=== PATIENT | female | born 1970 | race African-American/Black ===

== ENCOUNTER → 2016-07-14 | Outpatient (CLI) | payer MEDICAID ==
[~2016-07-14] MED LIST: CHANTIX 1MG1 MG PO; DESYREL 50MG50 MG PO; EFFEXOR XR37.5 MG/CA PO; FLEXERIL 1010 MG/TAB PO; LEVAQUIN 750MG750 M1 PO; LIORESAL 1010 MG/TAB; NAPROSYN 2250 MG/TAB PO; NATURE'S BLEND100 M2 PO; NICOTINE TD; NORCO 325 MG-51 TAB PO; NORVASC 10MG10 MG PO; PRAVACHOL 20MG20 MG PO; PRILOSEC 20MG20 MG PO; PROAIR HFA0.09 MG/AC IH; TENORMIN 2525 MG/TAB PO; TOPAMAX 25MG25 M1 PO; TOPAMAX25 M1 PO; VITAMIN D32000 I1 PO; ZANTAC 150MG T150 MG PO
== END ==
LOC: COL.RAD 07-07 11:00
DX: K21.0 Gastro-esophageal reflux disease with esophagitis (principal); K44.9 Diaphragmatic hernia without obstruction or gangrene; K22.4 Dyskinesia of esophagus

== ENCOUNTER 2016-10-31 12:46 | Emergency (ER) | payer MEDICAID ==
[~2016-10-31] VITALS: Ht 162.6 cm; Wt 94.1 kg
[~2016-10-31 12:46] MED LIST changes: -EFFEXOR XR37.5 MG/CA PO; -FLEXERIL 1010 MG/TAB PO; -LIORESAL 1010 MG/TAB; -NICOTINE TD; -PRAVACHOL 20MG20 MG PO
[2016-10-31] MEDS ORDERED: FLEXERIL 1010 MG/TAB PO (13:50)
[2016-10-31 14:14] VITALS: BP 140/69; PULSE 80; TEMP 98.9
== END 2016-10-31 14:16 | disposition home or self-care (01) ==
LOC: COL.ER 12:46
DX: M62.838 Other muscle spasm (principal); R49.0 Dysphonia; K21.9 Gastro-esophageal reflux disease without esophagitis; Z86.73 Personal history of transient ischemic attack (TIA), and cerebral infarction without residual deficits; F17.210 Nicotine dependence, cigarettes, uncomplicated

== ENCOUNTER 2016-12-13 11:39 | Day surgery (SDC) | payer MEDICAID ==
[~2016-12-13] VITALS: Ht 162.6 cm; Wt 95.4 kg
[2016-12-13] VITALS (8 sets, daily range): BP systolic 148–177; BP diastolic 77–96; PULSE 78–88; TEMP 98
[~2016-12-13 11:39] MED LIST changes: +FLEXERIL 1010 MG/TAB PO
[2016-12-13] MEDS ORDERED: PRAVACHOL 20MG20 MG PO (12:16)
[2016-12-13] MEDS ORDERED: EFFEXOR XR37.5 MG/CA PO (12:17)
[2016-12-13] MEDS ORDERED: LIORESAL 1010 MG/TAB (12:18)
[2016-12-13] MEDS ORDERED: NICOTINE TD (12:18)
[2016-12-14 02:00] VITALS: BP 190/92; PULSE 95; TEMP 99.7
[2016-12-14 05:33] VITALS: BP 156/84; PULSE 103
[2016-12-14 08:56] VITALS: BP 147/84; PULSE 94; TEMP 98.4
[2016-12-14 09:32] LABS: HEMATOCRIT 38.9 % (37.0-47.0); HEMOGLOBIN 12.2 g/dl (12.5-16.0)
[2016-12-14 09:36] VITALS: BP 150/80; PULSE 85; TEMP 98.8
[2016-12-14 09:51] LABS: CALCIUM 9.9 mg/dL (8.4-10.2); CREATININE, serum 0.63 mg/dL (0.52-1.25)
[2016-12-14 14:34] VITALS: BP 111/62; PULSE 70; TEMP 98.5
== END 2016-12-14 17:15 | disposition home or self-care (01) ==
LOC: SDCO 11:39 → SURG 18:21 → SDCO 12-14 17:15
PROVIDERS: Surgery
DX: K44.9 Diaphragmatic hernia without obstruction or gangrene (principal); K21.9 Gastro-esophageal reflux disease without esophagitis; F17.210 Nicotine dependence, cigarettes, uncomplicated; Z86.73 Personal history of transient ischemic attack (TIA), and cerebral infarction without residual deficits; Z82.49 Family history of ischemic heart disease and other diseases of the circulatory system; Z83.3 Family history of diabetes mellitus
CPT/HCPCS: OP; A9284; C1713; C1781; J0330; J0360; J0690; J1100; J1170; J1885; J2405; J2550; J2704; J2710; J3010; J7042; J7120

== ENCOUNTER → 2017-02-01 | Outpatient (CLI) | payer MEDICAID ==
[~2017-02-01] MED LIST changes: +EFFEXOR XR37.5 MG/CA PO; +LIORESAL 1010 MG/TAB; +NICOTINE TD; +PRAVACHOL 20MG20 MG PO
== END ==
LOC: COL.RAD 13:49
DX: M51.26 Other intervertebral disc displacement, lumbar region (principal); M89.38 Hypertrophy of bone, other site; M48.061 Spinal stenosis, lumbar region without neurogenic claudication; Q05.7 Lumbar spina bifida without hydrocephalus; G93.89 Other specified disorders of brain; R53.1 Weakness; R90.82 White matter disease, unspecified; Z86.73 Personal history of transient ischemic attack (TIA), and cerebral infarction without residual deficits

== ENCOUNTER 2017-04-01 19:36 | Emergency (ER) | payer MEDICAID ==
[2017-04-01 19:36] VITALS: TEMP 98.6
[2017-04-01] MEDS ORDERED: MEDROL 4MG DOSPA4 MG PO (19:56)
[2017-04-01] MEDS ORDERED: NORCO 325 MG-51 TAB PO (20:29)
[2017-04-01 20:39] VITALS: BP 131/76; PULSE 70
== END 2017-04-01 20:43 | disposition home or self-care (01) ==
LOC: COL.ER 19:36
DX: M54.16 Radiculopathy, lumbar region (principal); I10 Essential (primary) hypertension; F17.210 Nicotine dependence, cigarettes, uncomplicated; Z86.73 Personal history of transient ischemic attack (TIA), and cerebral infarction without residual deficits; Z87.39 Personal history of other diseases of the musculoskeletal system and connective tissue
CPT/HCPCS: J7512

== ENCOUNTER → 2017-06-26 | Outpatient (CLI) | payer MEDICAID ==
[~2017-06-26] MED LIST changes: +MEDROL 4MG DOSPA4 MG PO
== END ==
LOC: COL.VAS 09:58
DX: I70.203 Unspecified atherosclerosis of native arteries of extremities, bilateral legs (principal)

== ENCOUNTER → 2017-07-10 | Outpatient (CLI) | payer MEDICAID | LOC: COL.RAD 07:47 | DX: I70.213 Atherosclerosis of native arteries of extremities with intermittent claudication, bilateral legs (principal); I74.5 Embolism and thrombosis of iliac artery; I26.99 Other pulmonary embolism without acute cor pulmonale; I74.3 Embolism and thrombosis of arteries of the lower extremities; R91.8 Other nonspecific abnormal finding of lung field; Z86.73 Personal history of transient ischemic attack (TIA), and cerebral infarction without residual deficits | CPT/HCPCS: Q9967 ==

== ENCOUNTER 2017-07-26 08:56 | Day surgery (SDC) | payer MEDICAID ==
[~2017-07-26] VITALS: Ht 162.7 cm; Wt 96.0 kg
[2017-07-26] VITALS (10 sets, daily range): BP systolic 144–161; BP diastolic 66–93; PULSE 60–77; TEMP 98.4
[2017-07-26 09:45] LABS: HEMOGLOBIN 10.6 g/dl (12.5-16.0); MEAN CELL VOLUME 72 fl (80.0-100.0); MEAN CORPUSCULAR HEMOGLOBIN 23 pg (27.0-31.0); MEAN CORPUSCULAR HGB CONC 31 g/dl (33.0-37.0); PLATELET COUNT 221 K/mm3 (130-400); RED BLOOD COUNT 4.69 M/mm3 (4.10-5.30); REDCELL DISTRIBUTION WIDTH-CV 16.1 % (11.5-14.5)
[2017-07-26 09:48] LABS: HEMATOCRIT 33.8 % (37.0-47.0)
[2017-07-26 09:49] LABS: PROTHROMBIN TIME 11.2 SECONDS (9.7-12.8)
[2017-07-26 09:54] LABS: CREATININE, serum 0.79 mg/dL (0.52-1.25)
[2017-07-26] MEDS ORDERED: PLAVIX 75MG TAB75 MG PO (17:42)
[2017-07-26] MEDS ORDERED: ASPIRIN E.C. 8181 MG PO (17:42)
== END 2017-07-26 19:00 | disposition home or self-care (01) ==
LOC: COL.CAR 08:56
PROVIDERS: Radiology Diagnostic Radiology
DX: I70.212 Atherosclerosis of native arteries of extremities with intermittent claudication, left leg (principal); I10 Essential (primary) hypertension; F17.210 Nicotine dependence, cigarettes, uncomplicated; K21.9 Gastro-esophageal reflux disease without esophagitis; F32.9 Major depressive disorder, single episode, unspecified; F41.9 Anxiety disorder, unspecified; G89.29 Other chronic pain; M54.5 Low back pain; M41.9 Scoliosis, unspecified; Z88.6 Allergy status to analgesic agent; Z86.73 Personal history of transient ischemic attack (TIA), and cerebral infarction without residual deficits
CPT/HCPCS: C1725; C1753; C1760; C1769; C1887; C1894; J0360; J1644; J2250; J2704; J3010; J7030

== ENCOUNTER 2017-07-28 23:03 | Emergency (ER) | payer MEDICAID ==
[~2017-07-28] VITALS: Ht 165.1 cm; Wt 90.9 kg
[~2017-07-28 23:03] MED LIST changes: +ASPIRIN E.C. 8181 MG PO; +PLAVIX 75MG TAB75 MG PO
[2017-07-28 23:39] LABS: COLLECTION METHOD CLEAN CATCH
[2017-07-28 23:52] LABS: BASO % 0.5 % (0.0-2.0); EOS # 0.2 (0.0-0.7); GRAN # 5.9 (1.4-6.5); GRAN % 66.6 % (42.2-75.2); HEMOGLOBIN 10.6 g/dl (12.5-16.0); LYMPH % 22.6 % (20.0-51.0); MEAN CELL VOLUME 72 fl (80.0-100.0); MEAN CORPUSCULAR HEMOGLOBIN 23 pg (27.0-31.0); MEAN CORPUSCULAR HGB CONC 32 g/dl (33.0-37.0); MEAN PLATELET VOLUME 12.3 fl (7.4-10.4); MONO # 0.7 (0.1-0.6); MONO % 7.8 % (1.7-9.3); PLATELET COUNT 214 K/mm3 (130-400); RED BLOOD COUNT 4.64 M/mm3 (4.10-5.30); REDCELL DISTRIBUTION WIDTH-CV 16.1 % (11.5-14.5)
[2017-07-28 23:52] LABS: MUCOUS Present /lpf; PH 6 (5-8); URINE APPEARANCE Hazy; URINE BACTERIA None Seen /hpf; URINE BILIRUBIN Negative (NEGATIVE); URINE BLOOD 3+ (NEGATIVE); URINE COLOR Yellow; URINE GLUCOSE Negative (NEGATIVE); URINE KETONE Negative (NEGATIVE); URINE LEUKOCYTE ESTERASE Negative (NEGATIVE); URINE NITRATE Negative (NEGATIVE); URINE PROTEIN(semi-quant) 2+ (NEGATIVE); URINE RBC >50 /hpf; URINE UROBILINOGEN >=4.0 mg/dL (NEGATIVE)
[2017-07-28 23:57] LABS: HEMATOCRIT 33.5 % (37.0-47.0)
[2017-07-28 23:58] LABS: PROTHROMBIN TIME 11.2 SECONDS (9.7-12.8)
[2017-07-29] LABS: PARTIAL THROMBOPLASTIN TIME 29.7 SECONDS (26.0-37.0)
[2017-07-29 00:02] LABS: CREATININE, serum 0.8 mg/dL (0.52-1.25)
[2017-07-29 01:30] VITALS: BP 134/79; PULSE 82; TEMP 98.1
== END 2017-07-29 01:30 | disposition home or self-care (01) ==
LOC: COL.ER 23:03
PROVIDERS: Emergency Medicine
DX: N93.9 Abnormal uterine and vaginal bleeding, unspecified (principal); F17.210 Nicotine dependence, cigarettes, uncomplicated; Z86.79 Personal history of other diseases of the circulatory system; Z95.820 Peripheral vascular angioplasty status with implants and grafts; Z98.51 Tubal ligation status; Z98.890 Other specified postprocedural states; Z79.02 Long term (current) use of antithrombotics/antiplatelets; Z79.82 Long term (current) use of aspirin

== ENCOUNTER → 2017-10-27 | Outpatient (CLI) | payer MEDICAID | LOC: COL.VAS 10-17 11:00 | DX: G81.10 Spastic hemiplegia affecting unspecified side (principal); I63.9 Cerebral infarction, unspecified; I73.9 Peripheral vascular disease, unspecified; Z53.8 Procedure and treatment not carried out for other reasons ==

== ENCOUNTER → 2018-02-09 | Outpatient (CLI) | payer MEDICAID | LOC: MC.RAD 09:57 | DX: Z12.31 Encounter for screening mammogram for malignant neoplasm of breast (principal); N63.10 Unspecified lump in the right breast, unspecified quadrant ==

== ENCOUNTER → 2018-02-26 | Outpatient (CLI) | payer MEDICAID | LOC: MC.RAD 13:58 | DX: D24.1 Benign neoplasm of right breast (principal) ==

== ENCOUNTER → 2019-05-17 | Outpatient (CLI) | payer MEDICAID | LOC: MC.RAD 08:56 | DX: Z12.31 Encounter for screening mammogram for malignant neoplasm of breast (principal); Z98.890 Other specified postprocedural states ==

== ENCOUNTER 2021-03-10 10:24 | Emergency (ER) | payer MEDICAID ==
[~2021-03-10] VITALS: Ht 165.1 cm; Wt 90.9 kg
[~2021-03-10 10:24] MED LIST changes: +DESYREL 100MG100 MG PO; -DESYREL 50MG50 MG PO
[2021-03-10] MEDS ORDERED: EFFEXOR XR75 MG/CAP PO (11:06)
[2021-03-10 11:56] LABS: HEMATOCRIT 39.7 % (37.0-47.0); HEMOGLOBIN 12.3 g/dl (12.5-16.0); MEAN CELL VOLUME 75 fl (80.0-100.0); MEAN CORPUSCULAR HEMOGLOBIN 23 pg (27-31); MEAN CORPUSCULAR HGB CONC 31 g/dl (33.0-37.0); MEAN PLATELET VOLUME 12.4 fl (7.4-10.4); PLATELET COUNT 238 K/mm3 (130-400); RED BLOOD COUNT 5.33 M/mm3 (4.10-5.30); REDCELL DISTRIBUTION WIDTH-CV 15.2 % (11.5-14.5)
[2021-03-10 12:21] LABS: ERYTHROCYTE SEDIMENTATION RATE 5 mm/hr (0-20)
[2021-03-10 12:29] LABS: C-REACTIVE PROTEIN 0.9 mg/dL (0.00-0.50); CALCIUM 8.8 mg/dL (8.4-10.2); CREATININE, serum 0.83 mg/dL (0.57-1.11); POTASSIUM 3.9 mmol/L (3.5-4.5)
[2021-03-10 12:37] LABS: EOSINOPHIL 1 % (0-4); LYMPHOCYTE 36 % (20.0-51.0); NEUTROPHILS 58 % (42.0-75.2)
[2021-03-10 12:38] LABS: STOMATOCYTE 1+
[2021-03-10 12:39] LABS: ANISOCYTOSIS 1+; HYPOCHROMIA 2+; MICROCYTOSIS 1+; PLATELET ESTIMATE NORMAL (NORMAL)
[2021-03-10 14:08] VITALS: BP 173/81; TEMP 98.1
[2021-03-10] MEDS ORDERED: NORCO 325 MG-51 TAB PO (14:44)
[2021-03-10] MEDS ORDERED: PEPCID 20MG TAB20 MG PO (14:47)
[2021-03-10 14:54] VITALS: PULSE 68
[2021-03-15 11:03] LABS: PATHOLOGY DIFF REVIEW OK
== END 2021-03-10 14:57 | disposition home or self-care (01) ==
LOC: COL.ER 10:24
PROVIDERS: Emergency Medicine
DX: M25.562 Pain in left knee (principal); I73.9 Peripheral vascular disease, unspecified; Z86.73 Personal history of transient ischemic attack (TIA), and cerebral infarction without residual deficits; Z88.6 Allergy status to analgesic agent; Z79.82 Long term (current) use of aspirin

== ENCOUNTER 2021-05-10 11:38 | Emergency (ER) | payer MEDICAID ==
[~2021-05-10] VITALS: Ht 165.1 cm; Wt 95.5 kg
[~2021-05-10 11:38] MED LIST changes: +EFFEXOR XR75 MG/CAP PO; +PEPCID 20MG TAB20 MG PO
[2021-05-10 11:46] VITALS: TEMP 98.6
[2021-05-10 12:28] LABS: BASO % 0.5 % (0.0-2.0); EOS # 0.2 K/mm3 (0.0-0.7); EOS % 2.5 % (0.0-4.0); GRAN # 5.3 K/mm3 (1.4-6.5); GRAN % 62.1 % (42.2-75.2); HEMATOCRIT 38.6 % (37.0-47.0); HEMOGLOBIN 12.2 g/dl (12.5-16.0); LYMPH # 2.4 K/mm3 (1.2-3.4); LYMPH % 28.6 % (20.0-51.0); MEAN CELL VOLUME 74 fl (80.0-100.0); MEAN CORPUSCULAR HEMOGLOBIN 23 pg (27-31); MEAN CORPUSCULAR HGB CONC 32 g/dl (33.0-37.0); MEAN PLATELET VOLUME 12.5 fl (7.4-10.4); MONO # 0.5 K/mm3 (0.1-0.6); MONO % 5.7 % (1.7-9.3); PLATELET COUNT 201 K/mm3 (130-400); RED BLOOD COUNT 5.21 M/mm3 (4.10-5.30); REDCELL DISTRIBUTION WIDTH-CV 14.9 % (11.5-14.5)
[2021-05-10 12:42] LABS: ALANINE AMINOTRANSFERASE 8 U/L (0-55); ALBUMIN 3.8 gm/dL (3.5-5.0); ALKALINE PHOSPHATASE 84 U/L (40-150); ANION GAP 10 mmol/L (7-16); AST,SGOT 18 U/L (5-34); BILIRUBIN,TOTAL 0.3 mg/dL (0.2-1.2); BLOOD UREA NITROGEN 10 mg/dL (10-20); CARBON DIOXIDE 25 mmol/L (22-29); CHLORIDE 105 mmol/L (98-107); CREATININE, serum 1.01 mg/dL (0.57-1.11); GLUCOSE 103 mg/dL (70-99); POTASSIUM 3.8 mmol/L (3.5-4.5); SODIUM 140 mmol/L (136-145)
[2021-05-10 12:48] LABS: TROPONIN-I < 0.010 ng/mL (0.00-0.033)
[2021-05-10 12:49] LABS: INR 0.9 (0.8-3.0); PARTIAL THROMBOPLASTIN TIME 28.6 SECONDS (26.0-37.0); PROTHROMBIN TIME 10.4 SECONDS (9.7-12.8)
[2021-05-10] MEDS ORDERED: NORCO 325 MG-51 TAB PO (14:53)
[2021-05-10 14:55] VITALS: BP 177/99; PULSE 57
== END 2021-05-10 15:08 | disposition home or self-care (01) ==
LOC: COL.ER 11:38
PROVIDERS: Family Medicine
DX: R07.89 Other chest pain (principal); R10.13 Epigastric pain; R79.1 Abnormal coagulation profile; I10 Essential (primary) hypertension; Z20.822 Contact with and (suspected) exposure to COVID-19; Z86.73 Personal history of transient ischemic attack (TIA), and cerebral infarction without residual deficits; Z79.899 Other long term (current) drug therapy; Z79.02 Long term (current) use of antithrombotics/antiplatelets; Z79.82 Long term (current) use of aspirin
CPT/HCPCS: C9113

== ENCOUNTER → 2021-09-13 | Outpatient (CLI) | payer MEDICAID | LOC: COL.LAB 09:06 | DX: F11.20 Opioid dependence, uncomplicated (principal) ==